=== PATIENT | male | born 1970 | race Caucasian/White ===

== ENCOUNTER 2019-05-15 02:04 | Emergency (ER) | payer MEDICAID ==
[~2019-05-15] VITALS: Ht 182.9 cm; Wt 136.4 kg
[~2019-05-15 02:04] MED LIST: NO HOME MEDS
--- NOTE | 2019-05-15 03:30 | NUR ---
PATIENT WAITING FOR MD DENIED THE NEED FOR A BLANKET, ICE PACK, OR A PILLOW FOR THE FOOT TO BE ELAVATED , CALL LIGHT IN REACH . GLASSS OF WATER REQUESTED AND GIVEN
[2019-05-15 05:53] VITALS: BP 152/96
== END 2019-05-15 04:20 | disposition home or self-care (01) ==
LOC: ER 02:05
DX: S92.352A Displaced fracture of fifth metatarsal bone, left foot, initial encounter for closed fracture (principal); I10 Essential (primary) hypertension; W18.39XA Other fall on same level, initial encounter; Y93.89 Activity, other specified; Y92.89 Other specified places as the place of occurrence of the external cause; Y99.8 Other external cause status
CPT/HCPCS: 73610; 73630; 99284